=== PATIENT | female | born 1980 | race African-American/Black ===

== ENCOUNTER 2019-01-12 22:37 | Emergency (ER) | payer OTHER ==
[~2019-01-12] VITALS: Ht 170.2 cm; Wt 56.8 kg
[2019-01-13] MEDS ORDERED: ALPRAZOLAM 0.5 MG TABLET PO ONE (00:45)
[2019-01-13 02:11] VITALS: BP 118/67
== END 2019-01-13 02:21 | disposition home or self-care (01) ==
LOC: ER 22:37
DX: R00.0 Tachycardia, unspecified (principal); F41.9 Anxiety disorder, unspecified; Y08.89XA Assault by other specified means, initial encounter; Y93.89 Activity, other specified; Y92.89 Other specified places as the place of occurrence of the external cause; Y99.8 Other external cause status
CPT/HCPCS: 93005; 99283